=== PATIENT | female | born 1945 | race Caucasian/White ===

== ENCOUNTER 2023-08-11 01:36 | Inpatient (IN) | payer MEDICARE, OTHER, SELFPAY ==
[2023-08-10 21:03] VITALS: BP 142/85
[2023-08-10] MEDS: MOTRIN 600 MG PO (21:17)
[2023-08-10 21:25] LABS: % Eosinophils 3.9 % (0-6); % Lymphocytes 13.5 % (20.5-51.1); % Monocytes 28.6 % (1.7-9.3); Absolute Eosinophils 0.1 10^3/uL (0-0.7); Absolute Lymphocytes 0.4 10^3/uL (1.2-3.4); Absolute Monocytes 0.9 10^3/uL (0.1-0.6); Absolute Neutrophils 1.6 10^3/uL (1.4-6.5); Hematocrit 35.3 % (37.0-47.0); Hemoglobin 12.6 g/dL (12.0-16.0); Mean Corp Hgb Conc. 35.7 g/dL (33.0-37.0); Mean Corpuscular Hgb 33.8 pg (27.0-31.0); Mean Corpuscular Volume 94.6 fL (81.0-99.0); Nucleated Red Blood Cells % 0 %; Platelet Count 152 10^3/uL (130-400); Red Blood Cell Count 3.73 10^6/uL (4.20-5.40); Red Cell Dist. Width 13.3 % (11.5-14.5)
[2023-08-10 21:39] LABS: Lactic Acid 0.8 mmol/L (0.7-2.0)
[2023-08-10 21:52] LABS: ALT (SGPT) 125 U/L (0-35); AST (SGOT) 184 U/L (14-36); Albumin 3.7 g/dl (3.5-5.0); Alkaline Phosphatase 158 U/L (38-126); Blood Urea Nitrogen 24 mg/dl (7-17); Carbon Dioxide 22 mmol/L (22-30); Chloride 101 mmol/L (98-107); Glucose 146 mg/dl (70-99); Potassium 3.5 mmol/L (3.5-5.1); Sodium 133 mmol/L (135-145); Total Bilirubin 1.4 mg/dl (0.2-1.3); Total Protein 6.1 g/dl (6.3-8.2); eGFR > 60.00
[2023-08-10 21:53] LABS: Absolute Neutrophils -Man Diff 1.5 10^3/uL (1.4-6.5); Atypical Lymphocytes 4 %; Band Neutrophils 1 % (0-3); Eosinophils 5 % (0-6); Lymphocytes 10 % (20-51); Monocytes 29 % (2-9); Normal RBC Morphology Yes; Platelets Checked Yes; Segmented Neutrophils 51 % (42-75); Total Cells Counted 100
[2023-08-10 23:44] VITALS: BP 106/66
[2023-08-11] VITALS (7 sets, daily range): BP systolic 117–149; BP diastolic 63–99; BMI 30.7
[2023-08-11 00:08] LABS: Urine Albumin 1+ (Neg - Trace); Urine Bilirubin 3+ (Negative); Urine Character Slightly Cloudy (Clear); Urine Glucose Negative (Negative); Urine Ketone Trace (Negative); Urine Leukocyte 2+ (Negative); Urine Nitrite Positive (Negative); Urine Occult Blood 2+ (Negative); Urine Urobilinogen 3+ (Neg - 1+)
[2023-08-11 00:10] LABS: Urine Color Orange
[2023-08-11 00:15] LABS: Urine Amorphous Seen; Urine Mucus Many; Urine Squamous Cell >30 /LPF (Few); Urine Urothelial Cell >30 /LPF (FEW)
[2023-08-11 00:16] LABS: Urine Bacteria Many (Negative); Urine White Cell >100 /HPF (0-5)
[2023-08-11 00:30] LABS: Lactic Acid 0.9 mmol/L (0.7-2.0)
--- NOTE | 2023-08-11 00:30 | ED.GENMED ---
History of Present Illness
General
Chief Complaint: Fever
Source: patient
Exam Limitations: none
Time Seen by Provider: 08/10/23 23:17
Nursing documentation reviewed up to this point in time: agreed with
Travel History
Have you had any contact with someone who has COVID-19?: No
Do you have any symptoms of coronavirus? Fever > 100 degrees, chills, cough, shortness of breath, sore throat, loss of taste or smell, muscle aches, or headache?: No
History of Present Illness
History of Present Illness:
Patient with history of multiple myeloma and frequent UTI, presents to ED secondary to recurrent urinary frequency, painful urination, and lower abdominal pain over the past 4 days. Patient reports chills sensation over the past 24 hours. Denies
back pain. Denies nausea, vomiting, or diarrhea. Denies recent change in medications or diet. However, patient does report receiving chemotherapy yesterday. In addition, patient has had history of C. difficile colitis secondary to antibiotic use.
Past History
Past History
ED Past Medical History: CAD, Cancer (multiple myeloma), Hypercholesterolemia and Other (Scoliosis, anxiety, hiatal hernia)
Social History
Tobacco: Non-smoker
Review of Systems
Review of Systems
Allergies reviewed?: Yes
All Other Systems: ROS reviewed and negative except as documented in HPI and ROS
Constitutional: Denies chills
Respiratory: Reports no symptoms
Cardiac: Reports no symptoms
ABD/GI: Reports abdominal pain; Denies nausea, vomiting or diarrhea
: Reports dysuria and frequency
Musculoskeletal: Reports no symptoms; Denies back pain
Skin: Reports no symptoms
Neurological: Reports no symptoms
Phy Exam
Physical Exam
Physical Exam:
Physical Exam
General: mild distress, not acutely ill. afebrile
Head: nc/at. eomi
Neck: supple. normal range of motion.
Heart: s1/s2 regular rate and rhythm, no murmur. equal radial pulses.
Lungs: no acute respiratory distress. clear bilaterally
Abdomen: normal bowel sounds. not tender.
Neuro: alert and oriented. no focal neurological deficits
Skin: no rash
Psychiatric: well kept. interactive and cooperative
Extremities: no edema. no calf tenderness.
Course
Orders/Labs/Results
Orders:
Orders
08/10/23 21:11
ECG [Electrocardiogram (*1)] Urgent
Reason for Study: Bradycardia / Tachycardia
EKG- Treatment ONCE
08/10/23 21:12
Ibuprofen [Motrin] 600 mg PO NOW STA
08/10/23 21:17
Complete Blood Count/With Diff Urgent
Comprehensive Metabolic Panel Urgent
Lactic Acid Urgent
Manual Differential Urgent
Comment: ADD ON
Blood Culture Urgent
SUHA Source: Blood/Venous
Specimen Description:
08/10/23 23:49
COVID-19 Antigen Urgent
Source: Nasal Swab
Urinalysis Reflex To Culture Urgent
Date Specimen was Collected: 08/10/23
Time Specimen was Collected: 23:28
Urine Microscopic Reflex Cult Urgent
Influenza A+B Rapid Molecular Urgent
SUHA Source: Nasal Swab
Specimen Description:
Urine Culture Urgent
SUHA Source: U
Specimen Description:
Date Specimen was Collected: 08/10/23
Time Specimen was Collected: 23:28
08/11/23 00:05
Lactic Acid Urgent
08/11/23 00:27
CT Abd/pel Without Iv Or Oral Urgent
Comment:
Reason For Exam: lower abdominal/flank pain
08/11/23 00:42
0.9% Sodium Chloride 500 ml [Nss] 500 ml IV BOLUS
LevoFLOXacin 500 MG/100 ML [Levaquin] 500 mg in 100 ml IV NOW
08/11/23 01:18
Admit/Transfer Patient As Directed
Co-Sign Provider:
Level of Care: Inpatient admission
Assign to:: Telemetry
Physician / Group: angelay
Diagnosis: sepsis 2/2 UTI, hypovolemia
Reason for Telemetry: Other
Other Reason for Telemetry: sepsis
Date to Stop Telemetry: 08/13/23
Time to Stop Telemetry: 11:00
Reason for Hospitalization: Sespsis with high risk for developing bacteremia 2/2 recurrent UTI
Hypovolemia , relative hypotension
New onet eleavted LFTS
Immunocompromise state
Multiple Myeloma
Expected length of stay greater than two midnights?: Yes
ELOS- Estimated Length of Stay in days: 3
I certify the patient meets the requirements for IP care: Yes
08/11/23 01:20
Code Status As Directed
Resuscitation Status: Full Code
08/11/23 02:31
0.9% Sodium Chloride 1000 ml [Nss] 1,000 ml IV 100 mls/hr
Acetaminophen [Tylenol/Feverall] 650 mg RECTAL Q4HPRN PRN
Acetaminophen [Tylenol] 650 mg PO Q4HPRN PRN
LevoFLOXacin 500 MG/100 ML [Levaquin] 500 mg in 100 ml IV Q24H
08/11/23 02:31
Consult Notification Routine
Specialty to Notify: Infectious Disease
INFECTIOUS DISEASE CONSULT Routine
Consulting Provider: Salvatore Berry
Was physician already notified: No
Reason for consult: Receuurent UTI, Myltple myeloma, CDiff HX
Activity As Directed
Activity Level: With Assistance
Intake/ Output As Directed
Frequency: Per unit guidelines
Pneumatic Compression Sleeves As Directed
Type: Knee high
Vital Signs As Directed
Frequency: Per unit guidelines
Weight As Directed
Frequency: Daily
DX Deep Vein Thrombosis Video Routine
08/11/23 06:00
EKG [Electrocardiogram (*1)] IN AM
Reason for Study: QTc Monitoring
Cholesterol Lowering
Cholesterol Lowering: Sodium, 2 Gram
Complete Blood Count/With Diff IN AM
Comprehensive Metabolic Panel IN AM
08/11/23 08:00
mirabegron [Myrbetriq] 50 mg PO DAILY
08/11/23 22:00
Amitriptyline [Elavil] 25 mg PO HS
Escitalopram Oxalate [Lexapro] 5 mg PO HS
08/12/23 06:00
Comprehensive Metabolic Panel IN AM
08/13/23 11:00
DC Protocol for Telemetry ONCE
Abnormal Lab Results
08/10/23 08/10/23
21:17 23:49
WBC 3.0 L 10^3/uL
(4.8-10.8)
RBC 3.73 L 10^6/uL
(4.20-5.40)
Hct 35.3 L %
(37.0-47.0)
MCH 33.8 H pg
(27.0-31.0)
Absolute Lymphs (auto) 0.4 L 10^3/uL
(1.2-3.4)
Absolute Monos (auto) 0.9 H 10^3/uL
(0.1-0.6)
Immature Gran % 1.0 H %
(0-0.5)
Lymphocytes % 13.5 L %
(20.5-51.1)
Monocytes % 28.6 H %
(1.7-9.3)
Lymphocytes (Manual) 10 L %
(20-51)
Monocytes (Manual) 29 H %
(2-9)
Sodium 133 L mmol/L
(135-145)
BUN 24 H mg/dl
(7-17)
Glucose 146 H mg/dl
(70-99)
Total Bilirubin 1.4 H mg/dl
(0.2-1.3)
AST 184 H U/L
(14-36)
ALT 125 H U/L
(0-35)
Alkaline Phosphatase 158 H U/L
(38-126)
Total Protein 6.1 L g/dl
(6.3-8.2)
Urine Ketones Trace A
(Negative)
Ur Occult Blood Reflex 2+ A
(Negative)
Urine Nitrite (Reflex) Positive A
(Negative)
Urine Bilirubin 3+ A
(Negative)
Urine Urobilinogen 3+ A
(Neg - 1+)
Leukocyte Esterase Rfl 2+ A
(Negative)
Urine WBC (Reflex) >100 A /HPF
(0-5)
Urine Bacteria (Reflex) Many A
(Negative)
Urine Albumin (Reflex) 1+ A
(Neg - Trace)
08/10/23 21:17
08/10/23 21:17
Vital Signs
Initial and Last Documented VS:
Initial Vital Signs
Temp Pulse Resp BP Pulse Ox
101.1 F H 125 20 142/85 93
08/10/23 21:03 08/10/23 21:03 08/10/23 21:03 08/10/23 21:03 08/10/23 21:03
Last Documented Vital Signs
Temp Pulse Resp BP Pulse Ox
99.2 F 80 20 117/66 93
08/10/23 23:42 08/11/23 01:05 08/10/23 21:03 08/11/23 01:05 08/11/23 01:05
MDM/Problems Addressed
MDM/Problems Addressed:
Upon reviewing patient's admission records in 2020, it appears that patient may have developed C. difficile colitis after receiving either Rocephin or Omnicef as an outpatient. As such, patient will be started on Levaquin tonight along with fever
control and IV hydration.
In light of patient's immunocompromise state, patient is moderate to high risk for developing bacteremia.
Urine culture and blood culture pending.
*Critical Care Note
Total Time (30-74mins, 75-104mins- exclusive of procedures): Not Applicable
ED Attending Note
-
Portions of this chart may have been created with voice recognition software.� Occasional wrong word or��sound alike� substitutions may have occurred due to the inherent limitations of voice recognition software.
Discharge Plan
Departure
Patient Disposition: Admit
Date of Disposition: 08/11/23
Time of Disposition: 00:38
Presentation/result/management discussed w/ accepting MD/DO: Hospitalist
Discharge Problem:
Acute UTI, Sepsis
Interventions
Interventions:
*Risk Screen - Suicide Last Done: 08/10/23 21:03
*General Assessment Last Done: 08/10/23 21:03
*Neglect/Abuse Screening Last Done: 08/10/23 21:03
ED- Fall Risk Assessment Last Done: 08/10/23 23:45
*ED COVID-19 Vaccine History Last Done: 08/10/23 23:45
ED- Neurological Assessment Last Done: 08/10/23 23:45
ED-Skin Assessment Last Done: 08/10/23 23:45
[2023-08-11 00:31] LABS: COVID-19 Antigen Negative (Negative)
[2023-08-11] MEDS: LEVAQUIN 100 IV (00:55)
[2023-08-11] MEDS: NSS 500 IV (00:56)
--- NOTE | 2023-08-11 01:12 | HPS.HSE ---
Family Physician
-
Family Physician: NOT KNOW UNKNOWN - PT DOES
Chief Complaint
-
frequency, painful urination,
History of Present Illness
78F HX myeloma, recurrent UTI , urosepsis, C Diff colitis pw onset of frequency bladder resure since Sunday 08/06. Assciated with chills. Dxed UTI and started on PO ABx , name she could not remember. She felt nausea and vomiting once and came to ER
Denied CVA tenderness.
At ER T 101.1 BP 105/65 and tachycardic
Medical History
Past Medical History
Past Medical History: Reports Other
Additional Past Medical History:
E Coli UTI
HX C Diff colitis wit sepsis
CAD
Multiple myeloma
Hypercholesterolemia
Scoliosis
Anxiety
Hiatal hernia
Past Surgical History: Reports Other
Social History
Tobacco: Non-smoker
Alcohol: None
Family History
Family History: Not pertinent
Allergies / Home Medications
Allergies reflects when Allergies were last updated in [employer].
Home Medications with original date entered in [employer]
Allergy/Medication List:
Allergies
Allergy/AdvReac Type Severity Reaction Status Date / Time
No Known Allergies Allergy Verified 08/10/23 21:03
Home Medications
amitriptyline 25 mg tablet 25 mg PO HS Sleep 07/22/20
aspirin 81 mg chewable tablet 81 mg PO HS Blood clot prevention/tx 07/22/20
cholecalciferol (vitamin D3) 25 mcg (1,000 unit) tablet 2,000 units PO HS Supplement 07/22/20
escitalopram oxalate 5 mg tablet 5 mg PO HS Depression 07/22/20
pitavastatin calcium 2 mg tablet (Livalo) 2 mg PO HS High cholesterol 07/22/20
vancomycin 125 mg capsule (Vancocin) 125 mg PO QID #20 caps 08/23/20
daratumumab 1,800 qv-qnlaovdjzzdld-tbit 30,000 unit/15 mL subcut soln (Darzalex Faspro) 15 ml SC Q3W 08/11/23
mirabegron 50 mg tablet,extended release 24 hr (Myrbetriq) 50 mg PO DAILY 08/11/23
pantoprazole 40 mg tablet,delayed release 40 mg PO DAILY 08/11/23
pomalidomide 1 mg capsule (Pomalyst) 1 mg PO DAILY 08/11/23
rosuvastatin PO DAILY 08/11/23
Review of Systems
-
Constitutional: Reports Fever and Chills
EENT: Reports No Symptoms
Respiratory: Reports No Symptoms
Cardiac: Reports No Symptoms
Abdomen/GI: Reports No Symptoms
: Reports Dysuria and Frequency
Musculoskeletal: Reports No Symptoms
Skin: Reports No Symptoms
Neurological: Reports No Symptoms
Endocrine: Reports No Symptoms
Hematologic/Lymphatic: Reports No Symptoms
Psych: Reports No Symptoms
Physical Exam
Vital Signs
Vital Signs
Temp Pulse Resp BP Pulse Ox
99.2 F 80 20 117/66 93
08/10/23 23:42 08/11/23 01:05 08/10/23 21:03 08/11/23 01:05 08/11/23 01:05
Physical Exam
General: No Apparent Distress, Fever and Other (not toxic looking ); No Chills or Sweats
HEENT: NormoCephalic, Anicteric, Moist mucous membranes and Atraumatic
Respiratory: Clear; No Wheezes, Rales or Rhonchi
Cardiac: S1/S2, Regular Rhythm and Tachycardia
Breast: Deferred by me
GI: Soft, Non Tender, Non Distended and Normal Bowel Sounds
Rectal: Deferred by Provider
Genito-urinary: No costovertebral tender
Musculoskeletal: No Edema
Skin: Warm
Neuro: AO x 3 and No Motor Deficits
Psych: Calm and Intact Judgment/Insight
Laboratory Results
-
08/10/23 21:17
08/10/23 21:17
Laboratory Results
Lactic Acid 0.9 mmol/L (0.7-2.0) 08/11/23 00:05
Total Bilirubin 1.4 mg/dl (0.2-1.3) H 08/10/23 21:17
AST 184 U/L (14-36) H 08/10/23 21:17
ALT 125 U/L (0-35) H 08/10/23 21:17
Alkaline Phosphatase 158 U/L (38-126) H 08/10/23 21:17
Data Reviewed
-
CT Scan: Other (pending )
Lab Data: Labs Reviewed by me
Old Records: Reviewed
Impression/Plan
-
Data
WCC 3 - was 6 .3 on 04/12
Na 133
BUN 24
Cr 0.6
BG 146
TB 1.4 AST 185 ALT 125 AKP 185
NEG LA
UA POS for UTI
UCx, BCx sent
CT AP pending
EKG
ST , NSR
Last hospitalist admission: 08/21/20 - 08/23/20
C Diff colitis with sepsis
ASSESSMENT & PLAN
Immunocompromise state due to Multiple Myeloma
Sepsis - high risk for bacteremia
Hypovolemia , relative hypotension
New onet elevated LFTS DDX : shock liver
HX E Coli UTI
HX C DIff colitis following CFTX and or Omnicef as an outpatient
- IV LVQ q24h - f/u EKG to for QTc monitor
- IVF NS
- Tylenol PRN
- Held PPI due to hi risk for C Diff recurrence
- ID consult
HX IgG kappa Multiple Myeloma (follows with Dr. Melecio Mariscal [facility] - [place])
HX Anemia of chronic disease secondary to multiple myeloma
- f/u CBC
Anxiety and Depression
- c/w Elavil and Lexapro
HLD on Rosuvastatin
DVT Px: SCD
Full code
Ip TLM
[2023-08-11] MEDS: NSS 1000 IV ×2 (03:55→15:53)
--- NOTE | 2023-08-11 04:02 | PTCARENOTE ---
Pt. arrived to unit from ED via stretcher. Pt. able to safely ambulate with staff assistance into room 326 on . Pt. AAOx3 and able to make needs known. No c/o pain. Tele placed per orders. Oriented to unit. Call das within reach. Plan of care
ongoing.
[2023-08-11 06:21] LABS: Hematocrit 30.6 % (37.0-47.0); Hemoglobin 10.6 g/dL (12.0-16.0); Mean Corp Hgb Conc. 34.6 g/dL (33.0-37.0); Mean Corpuscular Hgb 34.1 pg (27.0-31.0); Mean Corpuscular Volume 98.4 fL (81.0-99.0); Mean Platelet Volume 9.7 fL (7.4-10.4); Platelet Count 126 10^3/uL (130-400); Red Blood Cell Count 3.11 10^6/uL (4.20-5.40); Red Cell Dist. Width 13.2 % (11.5-14.5); White Blood Cell Count 3.4 10^3/uL (4.8-10.8)
[2023-08-11 06:50] LABS: ALT (SGPT) 119 U/L (0-35); AST (SGOT) 94 U/L (14-36); Albumin 3.1 g/dl (3.5-5.0); Alkaline Phosphatase 132 U/L (38-126); Blood Urea Nitrogen 18 mg/dl (7-17); Calcium 8.2 mg/dl (8.4-10.2); Carbon Dioxide 24 mmol/L (22-30); Chloride 108 mmol/L (98-107); Estimated Creatinine Clearance 66 ml/min; Glucose 110 mg/dl (70-99); Potassium 3.7 mmol/L (3.5-5.1); Sodium 136 mmol/L (135-145); Total Bilirubin 0.8 mg/dl (0.2-1.3); Total Protein 5.4 g/dl (6.3-8.2); eGFR > 60.00
[2023-08-11 07:17] LABS: Absolute Neutrophils -Man Diff 1.3 10^3/uL (1.4-6.5); Band Neutrophils 3 % (0-3); Eosinophils 3 % (0-6); Lymphocytes 39 % (20-51); Monocytes 18 % (2-9); Platelets Checked Yes; Segmented Neutrophils 36 % (42-75)
[2023-08-11 07:18] LABS: Anisocytosis 1+; Normal RBC Morphology No; Ovalocytes 1+; Polychromasia Slight; Total Cells Counted 100
--- NOTE | 2023-08-11 08:57 | W.PN.UPDATE ---
Update Note
Progress Note Update
Nonbillable note
Patient had episode of what sounds like chills and rigors last night at time of last temperature over 101 urine frequency continues but no further bladder spasms she took a dose of Pyridium prior to coming in and got sick immediately afterwards with
nausea and some vomiting.In addition to history she relates ongoing chemotherapy for multiple myeloma/and following with outpatient urology for recurrent UTIs/been on numerous antibiotics without apparent recurrence of her prior history of C.
difficile which required hospitalization in August 2020
Presently vitals are stable and she has been afebrile since last temp elevation/she is quite anxious to leave but only had her last temperature elevation late evening and blood cultures still pending
Comfortable
Without any abnormal findings
White count 3.4 hemoglobin 10.6 platelet count 126LFTs appear to be trending down
Urine culture pending initial urinalysis with many bacteria
Immunocompromise state due to Multiple Myeloma
Sepsis - high risk for bacteremia
Hypovolemia , relative hypotension
New onet elevated� LFTS � DDX : shock liver
HX E Coli UTI
HX C DIff colitis following CFTX and or Omnicef as an outpatient
- IV LVQ q24h - f/u EKG to for QTc monitor
- IVF NS
- Tylenol PRN
- Held PPI due to hi risk for C Diff recurrence
- ID consult
HX IgG kappa Multiple Myeloma (follows with Dr. Melecio Mariscal [facility] - [place])
HX� Anemia of chronic disease secondary to multiple myeloma
- f/u CBC
Anxiety� and Depression
- c/w Elavil and Lexapro
HLD on Rosuvastatin
DVT Px: SCD
Full code
Ip TLM
--- NOTE | 2023-08-11 13:45 | CM ---
patient has saniya discharged to inpatient hospice to control behavioral issues and agitation.he will be transferred to room 2138.
--- NOTE | 2023-08-11 15:39 | CON.ID ---
Consultation
-
Date/Time Consultation Requested: 08/11/23 2:31
Date/Time Consultation Performed: 08/11/23 15:39
Requesting Provider: Dr Barron
Performing Provider: Dr Castillo
Reason for Consultation: Receuurent UTI, Myltple myeloma, CDiff HX
Chief Complaint / Past History
Chief Complaint
frequency, painful urination,
History of Present Illness
Ms Lala is a 78 year old female with history of multiple myeloma on current hemotherapy, recurrent UTIs, C difficile who presented here for dysuria, frequency, chills since 08/06. No back pain. She was diagnosed with UTI and started unknown
antibiotics progressed to nausea and vomiting and presented to the ER. Reports she is meeting with a urogynecologist and a cystoscopy is planned. She has been taking probiotics (radha) since our last meeting when she last had C diff.
Since arrival here Tmax 101.1 orally, bp stable, wbc initially 3.0 now 3.4, hgb 10.6, plt 126, L shift is noted, cr 0.5, lactic acid 0.9, t bili 0.8, ast 94, alt 119, alk phos 132 (LFTs downtrending), UA: >100 wbc/hpf, CT a/p without contrast:
possible cystitis, no evidence of pyelo, urine culture pending, blood cultures x1 in progress, C diff was 2020. Since arrival here she reports feeling much better.
Past History
Additional Past Medical History:
E Coli UTI
HX C Diff colitis wit sepsis
CAD
Multiple myeloma
Hypercholesterolemia
Scoliosis
Anxiety
Hiatal hernia
Past Surgical History: None and Other
Allergy History:
No Known Allergies Allergy (Verified 08/10/23 21:03)
Medications Reviewed: Yes
Social History
Tobacco: Non-Smoker
Alcohol: None
Personal:
Family History
Family History: Not Pertinent
Review of Systems
Review of Systems
General: Fever and Chills
All systems: All other systems were reviewed and were negative
Vital Signs
Temp Pulse Resp BP Pulse Ox
98.2 F 74 16 133/63 94
08/11/23 11:00 08/11/23 11:00 08/11/23 11:00 08/11/23 11:00 08/11/23 11:00
Physical Exam
Physical Exam
Constitutional: No Acute Distress
Cardiovascular: Regular Rate and S1/S2; Negative Murmur or Rub
Pulmonary: Clear and Symmetric; Negative Wheezes, Rales or Rhonchi
Gastrointestinal: Soft, Non Tender, Non Distended and Normal Bowel Sounds
Skin: Warm and Dry; Negative Rash or Jaundice
Lab / Diagnostic Study Results
08/11/23 05:53
08/11/23 05:53
Abs Immat Gran (auto) 0.0 10^3/uL (0-0.05) 08/10/23 21:17
Absolute Neuts (auto) 1.6 10^3/uL (1.4-6.5) 08/10/23 21:17
Absolute Lymphs (auto) 0.4 10^3/uL (1.2-3.4) L 08/10/23 21:17
Absolute Monos (auto) 0.9 10^3/uL (0.1-0.6) H 08/10/23 21:17
Absolute Basos (auto) 0.0 10^3/uL (0-0.2) 08/10/23 21:17
Total Counted 100 08/11/23 05:53
Immature Gran % 1.0 % (0-0.5) H 08/10/23 21:17
Neutrophils % 52.0 % (42.2-75.2) 08/10/23 21:17
Lymphocytes % 13.5 % (20.5-51.1) L 08/10/23 21:17
Monocytes % 28.6 % (1.7-9.3) H 08/10/23 21:17
Eosinophils % 3.9 % (0-6) 08/10/23 21:17
Basophils % 1.0 % (0-2) 08/10/23 21:17
Abs Neuts (Manual) 1.3 10^3/uL (1.4-6.5) L 08/11/23 05:53
Segmented Neutrophils 36 % (42-75) L 08/11/23 05:53
Band Neutrophils 3 % (0-3) 08/11/23 05:53
Lymphocytes (Manual) 39 % (20-51) 08/11/23 05:53
Eosinophils (Manual) 3 % (0-6) 08/11/23 05:53
Basophils (Manual) 1 % 08/11/23 05:53
Lactic Acid Cancelled 08/11/23 14:31
Ur Squamous Epith Cells >30 /LPF (Few) 08/10/23 23:49
Microbiology Results
Micro:
08/10/23 23:49 Influenza Types A & B (MANN) - Final
Nasal Swab Negative for Influenza A & B, NAAT
Negative results must be combined with clinical observations
and patient history.
Nucleic Acid Amplification test (NAAT)performed on the
[employer] platform.
08/10/23 23:49 Urine Culture - Pending
Urine
08/10/23 21:17 Blood Culture - Pending
Blood/Venous
Assessment / Plan
UTI
Remote history of C difficile
Multiple Myeloma on chemo
- blood cultures x2 sent
- urine culture in progress
- no evidence of pyelonephritis
- risks of secondary prophylaxis for C diff likely outweigh benefit at this time
- probiotics while on antibiotics and for a few days afterwards
- will narrow antibiotic spectrum when feasible, levaquin reasonable therapy at this time, switch to oral
- qtc acceptable, not on oral hypoglycemics
- follow clinically
--- NOTE | 2023-08-11 16:28 | CM ---
met with patient who lives with her in 3 story home with no steps to enter.her bed and bath is on the second level,she amb i. she amb I and is I with her adl's.she has no dme and has never had a vn or been to ip rehab in past.ptatient is adm
with uti on po abx,ivf and will have a cysto as an outpatient.
Plan:discharge home with no needs.
[2023-08-11] MEDS: VISBIOME 2 CAP PO (17:35)
[2023-08-11 19:36] LABS: Hepatitis C Antibody Negative (Negative)
[2023-08-11] MEDS: ELAVIL 25 MG PO (20:38)
[2023-08-11] MEDS: LEXAPRO 5 MG PO (20:38)
[2023-08-11] MEDS: NSS IV (22:43)
[2023-08-12 03:20] VITALS: BP 129/85
[2023-08-12] MEDS: LEVAQUIN 750 MG PO (05:38)
[2023-08-12 06:00] VITALS: BMI 30.5
[2023-08-12 06:11] LABS: Hematocrit 33.4 % (37.0-47.0); Hemoglobin 11.8 g/dL (12.0-16.0); Mean Corp Hgb Conc. 35.3 g/dL (33.0-37.0); Mean Corpuscular Hgb 34.3 pg (27.0-31.0); Mean Corpuscular Volume 97.1 fL (81.0-99.0); Mean Platelet Volume 9.3 fL (7.4-10.4); Platelet Count 129 10^3/uL (130-400); Red Blood Cell Count 3.44 10^6/uL (4.20-5.40); Red Cell Dist. Width 13.2 % (11.5-14.5); White Blood Cell Count 3.4 10^3/uL (4.8-10.8)
[2023-08-12 06:47] LABS: ALT (SGPT) 89 U/L (0-35); AST (SGOT) 39 U/L (14-36); Albumin 3.5 g/dl (3.5-5.0); Alkaline Phosphatase 127 U/L (38-126); Blood Urea Nitrogen 14 mg/dl (7-17); Calcium 8.5 mg/dl (8.4-10.2); Carbon Dioxide 22 mmol/L (22-30); Chloride 108 mmol/L (98-107); Estimated Creatinine Clearance 66 ml/min; Glucose 103 mg/dl (70-99); Potassium 3.8 mmol/L (3.5-5.1); Sodium 135 mmol/L (135-145); Total Bilirubin 0.7 mg/dl (0.2-1.3); Total Protein 5.9 g/dl (6.3-8.2); eGFR > 60.00
[2023-08-12 07:00] VITALS: BP 116/76; BP 130/66
[2023-08-12] MEDS: NSS IV (07:55)
[2023-08-12] MEDS: VISBIOME 2 CAP PO (07:56)
--- NOTE | 2023-08-12 08:46 | PN.CDI ---
CDI
- -
CDI:
Physician Documentation Request
Admit Date: 08/11/23 01:36
Dear Doctor Gucci,
Clinical Indicators:
Patient admitted with Sepsis; PMH includes Multiple Myeloma
08/10 ED report, ' ..patient does report receiving chemotherapy yesterday.'
WBC/RBC/Plt counts:
08/11/23 08/12/23
05:53 05:53
WBC 3.4 L 3.4 L
RBC 3.11 L 3.44 L
Plt Count 126 L 129 L
Based on the above, could you clarify in the progress notes, the appropriate diagnosis, if significant, that supports the above abnormalities and additional evaluation, monitoring and/or treatment rendered:
Pancytopenia due to chemotherapy/malignancy/sepsis
Pancytopenia, other (please specify)
Abnormal lab values, clinically insignificant
Other
Use of terms such as suspected, likely, concern for, or probable (associated with a specific diagnosis that is being evaluated, monitored, or treated as if it exists) are acceptable and can be coded in the inpatient setting, when documented at the
time of discharge.
Thank you,
LUIS FELIPE Tesfaye RN
CDI Specialist
available via tiger text
Please use your independent medical judgment in providing your response.
--- NOTE | 2023-08-12 09:18 | W.PN.HOSP.TC ---
Addendum entered and electronically signed by Tom Duckworth MD 08/12/23 13:41:
Pancytopenia in relation to combination of chemotherapy and diagnosis of multiple myeloma
Original Note:
Today's Communication/Plan
-
Suspect may be able to go later but will await ID input and further culture results hopefully later today
Check EKG to go on Levaquin on discharge
Assessment / Plan
Assessment / Plan
Immunocompromise state due to Multiple Myeloma
Sepsis - high risk for bacteremia/blood cultures thus far negative for growth
Hypovolemia , relative hypotension
New onet elevated� LFTS � DDX : shock liver
HX E Coli UTI/no growth to date on urine culture still pending
HX C DIff colitis following CFTX and or Omnicef as an outpatient
- IV LVQ q24h - f/u EKG to for QTc monitor
- IVF NS
- Tylenol PRN
- Held PPI due to hi risk for C Diff recurrence
- ID consult/continues on Levaquin now p.o.
HX IgG kappa Multiple Myeloma (follows with Dr. Melecio Mariscal [facility] - [place])
HX� Anemia of chronic disease secondary to multiple myeloma
- f/u CBC
LFTs trending down
-Relation of shock liver from presentation of sepsis
Anxiety� and Depression
- c/w Elavil and Lexapro
HLD on Rosuvastatin
DVT Px: SCD
Full code
Ip TLM
Anticipated Discharge: Within 24 hours
Subjective/Interval History
-
Date of Service: August 12, 2023
Feeling better no further burning on urination or spasms. No chills or rigors overnight.
Objective Data
-
Labs:
Laboratory Results
08/12/23
05:50
WBC 3.4 L
Hgb 11.8 L
Hct 33.4 L
Plt Count 129 L
Sodium 135
Potassium 3.8
Chloride 108 H
Carbon Dioxide 22
BUN 14
Creatinine 0.5 L
Glucose 103 H
Calcium 8.5
Total Bilirubin 0.7
AST 39 H
ALT 89 H
Alkaline Phosphatase 127 H
Vital Signs:
Vital Signs
Temp Pulse Resp BP Pulse Ox
98.5 F 82 16 130/66 93
08/12/23 07:00 08/12/23 07:00 08/12/23 07:00 08/12/23 07:00 08/12/23 07:00
I&O
08/11/23 08/12/23 08/13/23
06:59 06:59 06:59
Intake Total 540 / 540 1560 / 1560
Balance 540 / 540 1560 / 1560
Review of Systems
-
All other systems: Not reviewed unless documented
Physical Exam
-
General: Well Developed
HEENT: Normocephalic
Respiratory: Clear to Auscultation
Cardiac: Regular Rhythm
GI: Soft, Nontender and Nondistended
Genito-urinary: No Costovertebral Tender
Skin: Warm
Psych: Anxious
Data Reviewed
-
Total Time Spent with Patient (in minutes): 45
Labs: Labs Reviewed by me (White count 3.4 as yesterday. Hemoglobin stable at 11.8./LFTs trending down)
--- NOTE | 2023-08-12 14:22 | W.PN.UPDATE ---
Update Note
Progress Note Update
chart reviewed
1 further day of levofloxacin recommended
she has my number - reach out if any signs of relapse
--- NOTE | 2023-08-12 14:33 | W.DCSUMMARY ---
Discharge Summary
Discharge Data
Date of Admission: 08/11/23
Date of Discharge: 08/12/23
-
Pending Results: No
Additional Pending Results:
Initial culture results showing E. coli sensitivities still pending
Hospital Course
78-year-old female with a known history of multiple myeloma and undergoing chemotherapy she has had recurrent urinary tract infections in the last year more recently was diagnosed with C. difficile and presented with this time burning on urination
frequency and chills 3 days prior to presentation. She was diagnosed with a urinary tract infection and was treated with what was believed to be cefdinir unclear how many doses she took but presented to the ER after lack of resolution of her
symptoms she had also taken Pyridium which made her sick she sees a urogynecologist and is to have a planned outpatient elective cystoscopic sometime in the future. Patient she was febrile she had chills and rigors the night of after admission she
presented with and met criteria for sepsis without lactic acidosis. Her white count 3.0 hemoglobin 10.6 and platelets 126,000 consistent with underlying pancytopenia presumably in relation to combination of multiple myeloma or chemotherapy. She
did present with elevated LFTs have been downtrending since and believed to be in relation status. A CT of the abdomen pelvis noted possible cystitis without evidence of any pyelonephritis urine culture both taken as an outpatient and here as
inpatient grew out E. coli sensitivities still pending but she was placed empiric Levaquin 750 mg daily this is resulted in resolution of her symptoms defervesced since and symptomatic improvement. She was seen by the infectious disease service of
Dr. Tucker clean her in the past and agreed stable for discharge on this date to complete course of therapy with 1 more dosage of Levaquin of note during hospital stay EKGs were monitored for QTc with maximum QTc noted of 474 ms/single dose of
Levaquin was called in a local pharmacy she was instructed to take another 5-day course of her prior probiotic. She agrees to call ID consult should she have any relapse of her symptoms and has been given contact information for that.
Discharge Plan
-
Patient Disposition: Home (Routine Discharge)
Discharge Diagnosis/Procedures: E. coli urinary tract infection
Pancytopenia
Multiple myeloma
Diet: Regular
Activity: No restrictions
Additional Activity: Take probiotic for another 5 days
Driving Restrictions: As prior to admission
Referrals:
UNKNOWN - PT DOES,NOT KNOW [Family Provider] -
Beatriz Castillo MD [Active] - (Call her office if have relapse)
Prescriptions:
New
levofloxacin 750 mg Tablet
750 mg PO DAILY@0600 Qty: 1 0RF
Continued
amitriptyline 25 MG tablet
25 mg PO HS
aspirin 81 MG tablet,chewable
81 mg PO HS
escitalopram oxalate 5 MG tablet
5 mg PO HS
cholecalciferol (vitamin D3) 1,000 UNITS tablet
2,000 units PO HS
pantoprazole 40 mg Tablet,Delayed Release (Dr/Ec)
40 mg PO DAILY
rosuvastatin 20 mg Tablet
20 mg PO DAILY
Patient Comments:
pt doesn't know dosage - will have confirm on 08/11/23
Myrbetriq 50 mg Tablet Extended Release 24 Hr
50 mg PO DAILY
Pomalyst 1 mg Capsule
1 mg PO DAILY
Rx Instructions:
1 daily for 3 weeks (21 doses), then off for 7 days
Darzalex Faspro 1,800 mg-30,000 unit/15 mL Solution
15 ml SC Q3W
Patient Comments:
pt unsure of dosage
Discharge Orders:
Discharge Patient (As Directed); Ordered 08/12/23
Ordered By: Tom Duckworth
--- NOTE | 2023-08-12 14:39 | W.DS.TRANS ---
DC Summary - Training Lead
-
Discharge Instructions:
Discharge Diagnosis/Procedures E. coli urinary tract infection
Pancytopenia
Multiple myeloma
Diet Regular
Activity No restrictions
Additional Activity Take probiotic for another 5 days
Driving Restrictions As prior to admission
Instructions:
Stand-Alone Forms:
Changes to Home Medications: Yes
Discharge Medications:
DC Medications w/original date entered in [facility]
amitriptyline 25 mg tablet 25 mg PO HS Sleep 07/22/20
aspirin 81 mg chewable tablet 81 mg PO HS Blood clot prevention/tx 07/22/20
cholecalciferol (vitamin D3) 25 mcg (1,000 unit) tablet 2,000 units PO HS Supplement 07/22/20
escitalopram oxalate 5 mg tablet 5 mg PO HS Depression 07/22/20
daratumumab 1,800 [id number]-[id number] 30,000 unit/15 mL subcut soln (Darzalex Faspro) 15 ml SC Q3W Cancer 08/11/23
mirabegron 50 mg tablet,extended release 24 hr (Myrbetriq) 50 mg PO DAILY Urinary Issue 08/11/23
pantoprazole 40 mg tablet,delayed release 40 mg PO DAILY Gastrointestinal Issue 08/11/23
pomalidomide 1 mg capsule (Pomalyst) 1 mg PO DAILY Cancer 08/11/23
rosuvastatin 20 mg tablet 20 mg PO DAILY High Cholesterol 08/11/23
levofloxacin 750 mg tablet 750 mg PO DAILY@0600 #1 tab 08/12/23
Home Medication Changes
levofloxacin 750 mg tablet 750 mg PO DAILY@0600 #1 tab 08/12/23
Pending Results: No
Total time spent discharging patient (in min): 38
--- NOTE | 2023-08-12 16:59 | PTCARENOTE ---
Discussed discharge information with Pt at bedside. Iv access and tele removed. Belongings from room taken with Pt. Pt insisted on walking to exit with , to drive her home.
== END 2023-08-12 17:01 | disposition home or self-care (01) | DRG 871 ==
LOC: 3 WEST ACU 01:36
PROVIDERS: Emergency Medicine; ADMITTING PHYSICIAN Internal Medicine; ATTENDING PHYSICIAN Internal Medicine; EMERGENCY PHYSICIAN Emergency Medicine; OTHER PHYSICIAN Student in an Organized Health Care Education/Training Program
DX: A41.9 Sepsis, unspecified organism (principal); D61.810 Antineoplastic chemotherapy induced pancytopenia; K72.00 Acute and subacute hepatic failure without coma; N39.0 Urinary tract infection, site not specified; C90.00 Multiple myeloma not having achieved remission; D61.818 Other pancytopenia; D84.9 Immunodeficiency, unspecified; E86.1 Hypovolemia; I95.9 Hypotension, unspecified; F41.9 Anxiety disorder, unspecified; F32.A Depression, unspecified; E78.00 Pure hypercholesterolemia, unspecified; Z11.52 Encounter for screening for COVID-19
CPT/HCPCS: 74176; 80053; 81003; 81015; 83605; 85025; 85027; 86803; 87040; 87086; 87088; 87186; 87502; 87811; 93005; 96361; 96365; 99285